=== PATIENT | male | born 1965 | race Caucasian/White ===

== ENCOUNTER → 2016-06-27 | Outpatient (REF) | payer OTHER ==
[~2016-06-27] MED LIST: PAXI20TA3 PO; SYNT75TA PO
== END ==
LOC: M SFHCCAPE 08:44
PROVIDERS: ATTEND Physician Assistant
DX: F41.9 Anxiety disorder, unspecified (principal)

== ENCOUNTER 2016-12-08 03:18 | Emergency (ER) | payer OTHER, SELFPAY ==
[~2016-12-08] VITALS: Ht 177.8 cm; Wt 109.1 kg
[~2016-12-08 03:18] MED LIST changes: +PAXI20TA29 PO; -PAXI20TA3 PO
[2016-12-08] MEDS ORDERED: fentaNYL 100 MCG/2 ML INJECTION (J3010) IV ONE (03:45)
[2016-12-08] MEDS ORDERED: IBUP200T45 PO (03:47)
[2016-12-08] MEDS ORDERED: PARO5TAB (03:47)
[2016-12-08] MEDS ORDERED: LEVO175T2 (03:47)
[2016-12-08 04:03] LABS: BASO % 0.6 % (0.0-1.0); EOS # 0.2 K/mm3 (0.0-0.50); EOS % 1.7 % (0.0-3.0); LARGE UNSTAINED CELL # 0.2 K/mm3 (0.0-0.4); LARGE UNSTAINED CELL % 1.6 % (0.0-4.0); LYMPH % 29.9 % (24.0-44.0); MEAN CORPUSCULAR HEMOGLOBIN 29.6 pg (27.0-33.0); MEAN CORPUSCULAR HGB CONC 33.6 g/dl (32.0-36.5); MEAN CORPUSCULAR VOLUME 88.2 fl (80.0-96.0); MONO # 0.5 K/mm3 (0.0-0.8); MONO % 4.8 % (0.0-5.0); NEUTROPHILS # 5.9 K/mm3 (1.8-7.7); NEUTROPHILS % 61.5 % (36.0-66.0); PLATELET COUNT, AUTOMATED 254 k/mm3 (150-450); RED CELL DISTRIBUTION WIDTH 14.2 % (11.5-14.5); WHITE BLOOD COUNT 9.6 K/mm3 (4.0-10.0)
[2016-12-08 04:35] LABS: ANION GAP 9 MEQ/L (8-16); BLOOD UREA NITROGEN 15 MG/DL (7-18); CALCIUM LEVEL 8.8 MG/DL (8.5-10.1); CARBON DIOXIDE LEVEL 25 MEQ/L (21-32); CHLORIDE LEVEL 109 MEQ/L (98-107); CREATININE FOR GFR 0.87 MG/DL (0.70-1.30); GLOMERULAR FILTRATION RATE > 60.0 (>56); GLUCOSE, FASTING 119 MG/DL (70-105); POTASSIUM SERUM 3.7 MEQ/L (3.5-5.1); SODIUM LEVEL 143 MEQ/L (136-145)
[2016-12-08] MEDS ORDERED: HYDROmorphone HCL 1 MG/ML SYRINGE (J1170) IV ONE (04:45)
[2016-12-08] MEDS ORDERED: ISOVUE-370 76% 100ML VIAL (Q9967) As Ordered ONE (04:57)
--- NOTE | 2016-12-08 06:40 | REPUSA ---
CLINICAL HISTORY: R/o dissection. TECHNIQUE: Multiple incremental axial, coronal and oblique images are obtained from the thoracic inle t to the upper abdomen. Intravenous contrast material was administered. COMMENTS: There is excellent opacification of pulmonary arterial system without evidence for pulmonary embolism . Aorta is of normal caliber without evidence for dissection or aneurysm. There is no evidence of pleural or parenchymal mass. There are no pleural effusions. There is no evid ence of hilar or mediastinal lymphadenopathy. The heart and great vessels are within normal limits. Images of the upper abdomen demonstrate no evidence of adrenal mass. The bony structures are free of lytic or blastic lesions. IMPRESSION: No evidence for aortic dissection. Thank you for your kind referral of this patient.
[2016-12-08] MEDS ORDERED: HYDROmorphone HCL 1 MG/ML SYRINGE (J1170) IV PRN (07:30)
--- NOTE | 2016-12-08 07:33 | ECGEPIP ---
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
--- NOTE | 2016-12-08 07:33 | ECGEPIP ---
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
--- NOTE | 2016-12-08 08:22 | REP ---
Left upper extremity deep vein duplex ultrasound: The deep veins demonstrate normal compression, normal Doppler color flow and normal Doppler waveforms from the brachial veins to the common jugular vein. Impression: There is no evidence of deep vein thrombus. Signed by Navin Rangel MD 12/08/2016 08:13 A
--- NOTE | 2016-12-08 08:28 | REP ---
Portable chest, 04:10 a.m., single frontal view, patient sitting: The lung el are clear. The cardiac size is normal. The isaiah, mediastinum, and bony thorax are unremarkable. Impression: Negative portable chest. Signed by Navin Rangel MD 12/08/2016 08:21 A
--- NOTE | 2016-12-08 08:30 | REP ---
Left shoulder single AP view: There is no fracture or dislocation in this single projection. Mineralization and joint spaces are normal. No calcifications or foreign bodies. Impression: Negative single AP view of the left shoulder. Signed by Navin Rangel MD 12/08/2016 08:22 A
[2016-12-08] MEDS ORDERED: PERC5TAB12 PO (09:37)
[2016-12-08 09:47] VITALS: BP 161/89
== END 2016-12-08 09:48 | disposition home or self-care (01) ==
LOC: M ED 03:18
DX: M79.602 Pain in left arm (principal); E03.9 Hypothyroidism, unspecified
CPT/HCPCS: 71010; 71275; 73020; 80048; 82550; 82553; 83880; 85025; 93005; 93041; 93971; 96374; 96375; 96376; 99285; J1170; J3010; Q9967

== ENCOUNTER → 2016-12-09 | Outpatient (CLI) | payer SELFPAY ==
[~2016-12-09] MED LIST changes: +IBUP200T45 PO; +LEVO175T2; +PARO5TAB; +PERC5TAB12 PO
--- NOTE | 2016-12-09 16:57 | REP ---
Cervical spine MR study without contrast: History: Neck and left arm pain radiating to the elbow with numbness in the fingers. No comparison radiographs. Technique: Sagittal and axial T1 and T2-weighted scans are acquired in the usual fashion with and without fat saturation. Sequences include spin echo, turbo spin-echo, and STIR imaging sequences. MRI findings: There is reversal of the normal cervical lordosis. Cervical vertebral body heights are preserved. Cortical and medullary bone signal intensity are normal. There is some mild degenerative disc changes at C 5-6 and C6-7 with disc space narrowing at these levels. Axial and sagittal images at C6-7 demonstrate a left posterolateral disc herniation with cranial extrusion. This measures 5 mm anteroposterior x 7 mm craniocaudal x 6 mm medial to lateral span. This compresses the left side of the thecal sac and the medial aspect of the neural foramen. The remainder of the disc shows diffuse disc bulging mild in degree. At C5-6, there is a small protrusion of the right posterior disc margin effacing the ventral thecal sac margin but not compressing the cord. No neural foraminal narrowing is seen at C5-6. The other cervical disc levels are unremarkable. Cervical cord is normal in coarse, caliber and signal intensity on T1 and T2-weighted scans. Craniocervical junction is unremarkable. Impression: 1. Degenerative disc changes at C5-6 and C6-7. 2. Small right posterior disc protrusion at C5-6. 3. Moderate sized left posterior disc protrusion at C6-7 with cranial extrusion. Signed by Alexander Guzman MD 12/09/2016 05:01 P
== END ==
LOC: M RADPRO 15:34
PROVIDERS: ATTEND Orthopaedic Surgery
DX: M50.322 Other cervical disc degeneration at C5-C6 level (principal); M50.323 Other cervical disc degeneration at C6-C7 level; M50.222 Other cervical disc displacement at C5-C6 level; M50.223 Other cervical disc displacement at C6-C7 level; M79.602 Pain in left arm

== ENCOUNTER → 2020-05-20 | Outpatient (CLI) | payer SELFPAY | LOC: M LABSMTC 10:12 | PROVIDERS: ATTEND Pediatrics | DX: Z20.822 Contact with and (suspected) exposure to COVID-19 (principal) ==

== ENCOUNTER → 2020-06-27 | Outpatient (REF) | payer BC ==
[2020-06-27 13:26] LABS: APPEARANCE, URINE CLEAR (CLEAR); BACTERIA, URINE AUTO NEGATIVE (NEGATIVE); BILIRUBIN, URINE AUTO NEGATIVE (NEGATIVE); BLOOD, URINE BLOOD NEGATIVE (NEGATIVE); COLOR, URINE YELLOW (YELLOW); GLUCOSE, URINE (UA) AUTO NEGATIVE (NEGATIVE); KETONE, URINE AUTO NEGATIVE (NEGATIVE); LEUKOCYTE ESTERASE, URINE AUTO NEGATIVE (NEGATIVE); MUCUS, URINE SMALL (NEGATIVE); NITRITE, URINE AUTO NEGATIVE (NEGATIVE); PROTEIN, URINE AUTO NEGATIVE (NEGATIVE); RBC, URINE AUTO 1 /HPF (0-3); SPECIFIC GRAVITY URINE AUTO 1.013 (1.002-1.035); SQUAMOUS EPITHELIAL CELL UR AU 0 /HPF (0-6); UROBILINOGEN, URINE AUTO 0.2 mg/dL (0.0-2.0); WBC, URINE AUTO 0 /HPF (0-3)
== END ==
LOC: M SMT 12:44
PROVIDERS: ATTEND Nurse Practitioner Women's Health
DX: Z12.5 Encounter for screening for malignant neoplasm of prostate (principal)

== ENCOUNTER → 2020-10-19 | Outpatient (CLI) | payer BC ==
--- NOTE | 2020-10-19 12:13 | REP ---
INDICATION: PAIN. COMPARISON: None TECHNIQUE: Five views FINDINGS: There is bridging marginal osteophytosis on the left at L2-3 with scattered more moderate marginal osteophyte formation seen at multiple levels bilaterally. The pedicles appear to be intact bilaterally. There is mild to moderate disc space narrowing seen particularly posteriorly at every level. Vertebral body height and alignment is within normal limits. There is anterior lipping at every level. Degenerative facet joint changes are seen mildly to moderately at every level bilaterally. There is no evidence of spondylolysis or spondylolisthesis. IMPRESSION: Chronic changes as described above. <Electronically signed by Roby Vickers > 10/19/20 [id number]
--- NOTE | 2020-10-19 12:13 | REP ---
INDICATION: PAIN. COMPARISON: None. TECHNIQUE: AP and frogleg views of the left hip. FINDINGS: AP and frogleg views of the left hip demonstrate moderate to advanced osteoarthritis of the left hip with superior joint space loss, osteophyte formation and sclerosis. There is subcortical cyst formation in the superior acetabulum and in the femoral head. Femoral head remains rounded. Periarticular soft tissues are unremarkable. IMPRESSION: Moderate to marked osteoarthritis of the left hip. <Electronically signed by Yoan Guzman > 10/19/20 [id number]
== END ==
LOC: M WUC 11:16
PROVIDERS: ATTEND Nurse Practitioner Adult Health
DX: M16.12 Unilateral primary osteoarthritis, left hip (principal)

== ENCOUNTER → 2021-04-25 | Outpatient (REF) | payer BC ==
[~2021-04-25] MED LIST changes: -IBUP200T45 PO; +IBUP200T46 PO
[2021-04-25 17:21] LABS: APPEARANCE, URINE CLEAR (CLEAR); BACTERIA, URINE AUTO NEGATIVE (NEGATIVE); BILIRUBIN, URINE AUTO NEGATIVE (NEGATIVE); BLOOD, URINE BLOOD NEGATIVE (NEGATIVE); COLOR, URINE YELLOW (YELLOW); GLUCOSE, URINE (UA) AUTO NEGATIVE (NEGATIVE); KETONE, URINE AUTO NEGATIVE (NEGATIVE); LEUKOCYTE ESTERASE, URINE AUTO NEGATIVE (NEGATIVE); MUCUS, URINE SMALL (NEGATIVE); NITRITE, URINE AUTO NEGATIVE (NEGATIVE); PROTEIN, URINE AUTO NEGATIVE (NEGATIVE); RBC, URINE AUTO 0 /HPF (0-3); SPECIFIC GRAVITY URINE AUTO 1.017 (1.002-1.035); SQUAMOUS EPITHELIAL CELL UR AU 0 /HPF (0-6); UROBILINOGEN, URINE AUTO 0.2 mg/dL (0.0-2.0); WBC, URINE AUTO 0 /HPF (0-3)
[2021-04-25 17:26] LABS: INR 0.97; PROTHROMBIN TIME 13.2 SECONDS (12.7-14.5)
[2021-04-25 17:27] LABS: PARTIAL THROMBOPLASTIN TIME 31.5 SECONDS (25.9-37.0)
[2021-04-25 17:38] LABS: PERCENT SATURATION 26.2 % (19.7-50.0)
== END ==
LOC: M LAB REF 16:31
PROVIDERS: ATTEND Internal Medicine
DX: Z01.810 Encounter for preprocedural cardiovascular examination (principal); Z01.818 Encounter for other preprocedural examination

== ENCOUNTER → 2024-07-21 | Outpatient (CLI) | payer BC, OTHER ==
[~2024-07-21] MED LIST changes: -PAXI20TA29 PO; +PAXI20TA30 PO
== END ==
LOC: M RAD 11:38
PROVIDERS: ATTEND Physician Assistant Medical
DX: M19.011 Primary osteoarthritis, right shoulder (principal)

== ENCOUNTER → 2025-03-09 | Outpatient (CLI) | payer OTHER | LOC: M WUC 13:26 | PROVIDERS: ATTEND Physician Assistant Medical | DX: M25.552 Pain in left hip (principal) ==